=== PATIENT | female | born 1945 | race Caucasian/White ===

== ENCOUNTER 2020-12-25 09:52 | Day surgery (SDC) | payer MEDICARE ==
[2020-12-25] VITALS (7 sets, daily range): BP systolic 141–167; BP diastolic 58–82
[~2020-12-25] VITALS: Ht 170.2 cm; Wt 98.4 kg
[2020-12-25] MEDS ORDERED: normal saline 1000ml 1,000 ML IV SCH (10:25)
[2020-12-25] MEDS ORDERED: clindamycin-Cleocin 900mg/D5W 50 ML IV ONE (10:30)
[2020-12-25] MEDS ORDERED: CLINDAmcin 900mg/NS 50ml IVPB 50 ML IV ONE (10:30)
[2020-12-25] MEDS ORDERED: TRIA1TAB5 PO (11:07)
[2020-12-25] MEDS ORDERED: ESCI-8 PO (11:07)
[2020-12-25] MEDS ORDERED: VALS160T30 PO (11:07)
[2020-12-25] MEDS ORDERED: METO-384 PO (11:10)
[2020-12-25] MEDS ORDERED: DABI150C PO (11:10)
[2020-12-25] MEDS ORDERED: MULT-1085 PO (11:10)
[2020-12-25] MEDS ORDERED: AMIO200T61 PO (11:10)
[2020-12-25] MEDS ORDERED: ATOR10TA87 PO (11:11)
[2020-12-25 11:51] LABS: BASOPHILS % (AUTO) 0.6 % (0-1); EOSINOPHILS # (AUTO) 0.1 X10'3 (0-0.9); EOSINOPHILS % (AUTO) 1.3 % (0-6); HEMATOCRIT 41.1 % (35.0-45.0); LYMPHOCYTES % (AUTO) 25.2 % (21-51); MEAN CORPUSCULAR HEMOGLOBIN 31.2 PG (27.0-31.0); MEAN CORPUSCULAR HGB CONC 33.9 g/dL (33.0-36.5); MEAN CORPUSCULAR VOLUME 91.9 FL (78-98); MEAN PLATELET VOLUME 8.2 FL (7.4-10.4); MONOCYTES # (AUTO) 0.4 X10'3 (0-0.9); MONOCYTES % (AUTO) 5.7 % (2-12); NEUTROPHILS # (AUTO) 5.2 X10'3 (1.8-7.7); NEUTROPHILS % (AUTO) 67.2 % (42-75); PLATELET COUNT 243 X10'3 (140-440); RED BLOOD COUNT 4.47 X10'6 (4.20-5.60); RED CELL DISTRIBUTION WIDTH 13.4 % (11.5-14.5); WHITE BLOOD COUNT 7.8 X10'3 (4.5-11.0)
[2020-12-25 12:06] LABS: ALBUMIN 3.5 G/DL (3.4-5.0); BLOOD UREA NITROGEN 27 MG/DL (7-18); BUN/CREATININE RATIO 21.8 (6.6-38.0); CALCIUM 8.7 MG/DL (8.5-10.1); CREATININE 1.24 MG/DL (0.40-0.90); GLUCOSE 112 MG/DL (70-104); MAGNESIUM 1.7 MG/DL (1.5-2.4); TOTAL CARBON DIOXIDE 30.3 MMOL/L (24-32); eGFR 42 ML/MIN
[2020-12-25 12:24] LABS: ANION GAP 8 (8-16); CHLORIDE 106 MMOL/L (99-107); POTASSIUM 3.3 MMOL/L (3.5-5.1); SODIUM 144 MMOL/L (135-145)
[2020-12-25] MEDS ORDERED: vancomycin 1,000mg inj ONE (12:58)
[2020-12-25] MEDS ORDERED: midazolam 1 mg/ML 2ml injection ONE ×2 (12:59→13:35)
[2020-12-25] MEDS ORDERED: LIDOCAINE 2% w/EPI 1:100:000 30mL injection MDV**cath lab 1 only ONE (13:00)
[2020-12-25] MEDS ORDERED: fentaNYL/PF 50MCG/1 ML 2ML syringe ONE (13:00)
== END 2020-12-25 16:30 | disposition home or self-care (01) ==
LOC: SSTAY O 09:52
PROVIDERS: ATTEND Internal Medicine Cardiovascular Disease
DX: T82.120A Displacement of cardiac electrode, initial encounter (principal); I10 Essential (primary) hypertension; I47.2 Ventricular tachycardia; I48.0 Paroxysmal atrial fibrillation; I47.1 Supraventricular tachycardia; E78.5 Hyperlipidemia, unspecified; G47.30 Sleep apnea, unspecified; F32.9 Major depressive disorder, single episode, unspecified; Z79.899 Other long term (current) drug therapy; Z90.710 Acquired absence of both cervix and uterus; Z98.890 Other specified postprocedural states; Z87.891 Personal history of nicotine dependence; Z72.89 Other problems related to lifestyle; Z88.0 Allergy status to penicillin; Z88.8 Allergy status to other drugs, medicaments and biological substances; Z82.49 Family history of ischemic heart disease and other diseases of the circulatory system; Z81.8 Family history of other mental and behavioral disorders; Z80.3 Family history of malignant neoplasm of breast; Y83.8 Other surgical procedures as the cause of abnormal reaction of the patient, or of later complication, without mention of misadventure at the time of the procedure; Y92.89 Other specified places as the place of occurrence of the external cause
CPT/HCPCS: 33216; 33244; 36415; 71045; 80048; 83735; 85025; 85610; 93005; 99152; 99153; C1777; C1894; J2250; J3010; J3370; 33215; 33234; A4620